=== PATIENT | female | born 1970 | race Caucasian/White ===

== ENCOUNTER → 2016-11-10 | Day surgery (SDC) | payer BC ==
[2016-10-21 09:50] VITALS: Ht 162.6 cm; Wt 90.9 kg
[~2016-11-10] VITALS: Ht 162.6 cm; Wt 90.9 kg
[~2016-11-10] MED LIST: ATROPINE SULFATE 0.1 MG/ML 5ML SYR IV PRN; CALC500C70 PO; CLR10 PO; DEXAMETHASONE SOD INJ 4 MG/ML VIAL ONE; EpHEDrine SULFATE INJ 50 MG/ML AMP IV PRN; FENTANYL CITRATE INJ 50 MCG/1 ML 2 ML VIAL IV PRN; FENTANYL CITRATE INJ 50 MCG/1 ML 2 ML VIAL ONE; FERRIC SUBSULFATE 8 GM VIAL ONE; FLAX1CAP11 PO; FLUMAZENIL 0.1 MG/1 ML 10 ML VIAL IV PRN; GLYCOPYRROLATE INJ 0.2 MG/ML VIAL ONE; IBUPROFEN 600 MG TAB PO PRN; IODINE SOLN STRONG 14 ML ONE; KETOROLAC TROMETHAMINE 30 MG/ML VIAL IV. PRN; LABETALOL HCL IV 5 MG/ML 20ML IV PRN; LACTATED RINGER'S 1000ML 1,000 ML IV SCH; LIDOCAINE HCL 2% 2 ML VIAL (20MG/ML) ONE; LIDOCAINE/EPINEPHRINE 1% INJ 50 ML VIAL ONE; LOSA50TA6 PO; METOCLOPRAMIDE HCL INJ 5 MG/ML 2 ML VIAL IV PRN; MIDAZOLAM HCL 1 MG/ML 2ML VIAL ONE; MULT-506 PO; NALOXONE HCL 0.4 MG/1 ML VIAL/CARP IV PRN; NEOSTIGMINE METHYLSULFATE 5 MG/5 ML SYR ONE; ONDANSETRON INJ 2 MG/ML 2 ML VIAL IV PRN; ONDANSETRON INJ 2 MG/ML 2 ML VIAL ONE; OXYCODONE/ACETAMINOPHEN 5-325 TAB PO PRN; PRLSR20 PO; PROMETHAZINE HCL INJ 12.5 MG in SODIUM CHLORIDE 0.9% 50ML 50 ML IV PRN; PROPOFOL IV EMULSION 10 MG/ML 20 ML VIAL IV ONE; ROCURONIUM BROMIDE 10 MG/ML 5 ML VIAL ONE; SODIUM CHLORIDE 0.9% 1000ML 1,000 ML IV SCH; SUCCINYLCHOLINE 100MG/5ML SYR IV ONE
--- NOTE | 2016-11-10 12:47 | History & Physical Bridge - [place] ---
H&P Re-Evaluation Bridge Note: I have examined the patient, reviewed the History & Physical and in the interval since the performance of the History & Physical I have noted the following changes of clinical significance: No changes noted
--- NOTE | 2016-11-10 12:57 | Discharge Instructions-SurgCtr ---
Discharge Instructions Date of Service Nov 10, 2016. Visit Reason for Visit: Atypical Glandular Cells Undetermined Significance Discharge Discharge Diagnosis / Problem: Atypical glandular cells Discharge Goals Goal(s): Specific goals Activity Recommendations Activity Limitations: per Instructions/Follow-up section Anesthesia . Post Anesthesia Instructions: If you have had General Anesthesia or IV Sedation: * Do not drive today. * Resume driving when surgeon permits. * Do not make important decisions or sign legal documents today. * Call surgeon for: 1. Temperature elevations greater than 101 degrees F. 2. Uncontrollable pain. 3. Excessive bleeding. 4. Persistent nausea and vomiting. 5. Medication intolerance (nausea, vomiting or rash). * For nausea and vomiting use only clear liquids such as: tea, soda, bouillon until nausea subsides, then gradually increase diet as tolerated. * If you have any concerns or questions, call your surgeon's office. If physician is unavailable and it is an emergency, call 911 or go to the nearest emergency room. . Instructions / Follow-Up Instructions / Follow-Up ACTIVITY RECOMMENDATIONS: * Avoid tampons, douching, hot tubs, pools, and intercourse until bleeding has stopped. * May shower as usual. * No strenuous activity for 24-48 hours. After 24-48 hours, you may do anything you feel like doing (driving and sports are okay). SPECIAL CARE INSTRUCTIONS: Special Diet: * Mild nausea may occur in the immediate post-operative period. * Take clear liquids such as tea, cola or bouillon until all nausea has subsided; you may then resume your normal diet. Special Care: * Light bleeding and vaginal spotting can last from a few days to 3-4 weeks. Call your doctor if bleeding becomes heavier than the heaviest part of your period. * Check your temperature twice a day for one week. If it goes above 100.4 degrees Fahrenheit (38.0 Celsius), notify your doctor. * Call your doctor's office for an appointment for 6 weeks after your surgery. FOLLOW-UP VISIT: Call your doctor's office for an appointment for 6 weeks after your surgery. Diet Recommendations Home Diet: resume previous diet Pending Studies Studies pending at discharge: no Medical Emergencies . Who to Call and When: Medical Emergencies: If at any time you feel your situation is an emergency, please call 911 immediately. . Non-Emergent Contact Non-Emergency issues call your: Primary Care Provider . . "Provider Documentation" section prepared by Sheron Mark.
--- NOTE | 2016-11-10 13:53 | [facility] Post Operative Brief Note ---
Immediate Operative Summary Operative Date Nov 10, 2016. Pre-Operative Diagnosis Atypical Glandular Cells Undetermined Significance Post-Operative Diagnosis same Procedure(s) Performed Dilatation And Curettage, Hysteroscopy, Possible Polypectomy, Loop Electrosurgical Excision Procedure Surgeon Dr. Ave aMrk Emulsification Operator Surgeon(s) 0 Estimated Blood Loss 10cc Findings Normal appearing ectocervix, endocervix. LEEP done with broad ectocervical sweep and smaller top-hat. Endometrial cavity with ostia visualized bilaterally and without obvious polyps. Specimens A.Ectocervix B. Top Hat C. Endometrial Curettings Complication(s) None Disposition Recovery Room / PACU
--- NOTE | 2016-11-10 14:25 | OPERATIVE REPORT ---
DATE OF OPERATION: 11/10/2016 PREOPERATIVE DIAGNOSIS: Atypical glandular cells of undetermined significance. POSTOPERATIVE DIAGNOSIS: Same. PROCEDURE: Dilation and curettage with hysteroscopy and loop electrical excision procedure. SURGEON: Dr. Mark. TRANSCRIBER: None. ESTIMATED BLOOD LOSS: 10 mL. FINDINGS: Normal appearing ectocervix and endocervix. LEEP was done with a broad ectocervical sweep and a smaller top hat. Endometrial cavity with ostia visualized bilaterally appeared relatively normal and without obvious polyps. There were some cavity distortions consistent with possible anterior fundal fibroid. SPECIMENS: Ectocervix top hat and endometrial curettings. COMPLICATIONS: None. DISPOSITION: Stable to the recovery room. DESCRIPTION: Ms. Quispe is a 46-year-old female with a Pap smear showing AGCUS. She had been previously cared for by Dr. Husain of the [facility] group, who had done appropriate workup for her including colposcopy, endocervical curettage and endometrial biopsy. All of these were normal, leaving her AGCUS Pap unexplained. The appropriate next step would be a LEEP. Additionally, polypoid tissue was seen on the endometrial biopsy done at [facility], therefore the patient and I had discussed doing a D\T\C in order to retrieve any polyps that may be present in the cavity. The patient was brought for the planned procedures including LEEP and D\T\C hysteroscopy. She was placed on the table in the dorsal lithotomy position, using candy cane stirrups and prepped and draped in the standard sterile fashion and a hard time-out was taken prior to proceeding. The bladder was emptied of urine via straight catheterization. The coated Graves' speculum was introduced to the vagina. The ectocervix with transformation zone was easily visualizable due to the Betadine prep solution. 10 mL of 1% lidocaine with epinephrine were then used to roxie the ectocervix by injecting 2.5 mL in each of 4 quadrants of the ectocervix. Once blanching had been achieved, the loop was used to excise a shallow, but wide ectocervical specimen, which was sent in 1 container. A smaller loop was then used to excise a top hat specimen, which was sent in a smaller container. The cervix was then dilated to allow passage of the hysteroscope, which was introduced to the fundus, where a normal cavity was seen with ostia visuable bilaterally. There were no obvious polyps. There were some possible fibroid seen in the anterior fundal region, visible as mild mounding or bumps inwards in the endometrial lining. These were subtle and I suspect that these, if they represent fibroids, would be intramural and not directly submucosal. The scope was then withdrawn and a brief sharp curettage was carried out on all traylor. The endometrial curettings were sent for pathology and the scope was then gently reintroduced to the fundus where the cavity was seen to be well curette on all traylor. After the scope was withdrawn, ball electrocautery was used to achieve complete hemostasis in the prior LEEP bed. Once hemostasis was achieved, all instruments were removed and the patient was transferred to the recovery room. I attest to the content of the Intraoperative Record and any orders documented therein. Any exceptio ns are noted below.
[2016-11-10 14:44] VITALS: TEMP 36.4
--- NOTE | 2016-11-10 14:50 | Anesthesia Progress Nt - [facility] ---
Anesthesia Post Op Note Date & Time Nov 10, 2016 at 14:49 Vital Signs Pain Intensity: 0 Vital Signs Past 12 Hours Date Time Temp Pulse Resp B/P Pulse Ox O2 Delivery O2 Flow Rate FiO2 11/10/16 14:44 36.4 65 18 129/84 97 Room Air 11/10/16 14:26 36.4 95 Room Air 11/10/16 14:20 61 13 133/88 100 11/10/16 14:15 61 6 133/76 100 11/10/16 14:10 67 12 131/86 100 11/10/16 14:05 69 19 140/83 100 11/10/16 14:00 81 19 139/88 100 11/10/16 13:57 36.7 98 152/85 100 11/10/16 13:57 36.7 86 20 152/85 100 Mask 8 11/10/16 10:56 36.9 100 16 146/87 97 Room Air Notes Mental Status: alert / awake / arousable, participated in evaluation Pt Amnestic to Procedure: Yes Nausea / Vomiting: adequately controlled Pain: adequately controlled Airway Patency, RR, SpO2: stable & adequate BP & HR: stable & adequate Hydration State: stable & adequate Anesthetic Complications: no major complications apparent
[2016-11-10 15:20] VITALS: BP 139/87; PULSE 68; O2SAT 98
== END | disposition home or self-care (01) ==
LOC: X.SURG 10:41
PROVIDERS: ATTEND Obstetrics & Gynecology
DX: N72 Inflammatory disease of cervix uteri (principal); K21.9 Gastro-esophageal reflux disease without esophagitis; I10 Essential (primary) hypertension; J30.2 Other seasonal allergic rhinitis; Z98.890 Other specified postprocedural states; Z88.8 Allergy status to other drugs, medicaments and biological substances

== ENCOUNTER → 2017-11-27 | Outpatient (CLI) | payer OTHER ==
[~2017-11-27] MED LIST changes: -ATROPINE SULFATE 0.1 MG/ML 5ML SYR IV PRN; -DEXAMETHASONE SOD INJ 4 MG/ML VIAL ONE; -EpHEDrine SULFATE INJ 50 MG/ML AMP IV PRN; -FENTANYL CITRATE INJ 50 MCG/1 ML 2 ML VIAL IV PRN; -FENTANYL CITRATE INJ 50 MCG/1 ML 2 ML VIAL ONE; -FERRIC SUBSULFATE 8 GM VIAL ONE; -FLUMAZENIL 0.1 MG/1 ML 10 ML VIAL IV PRN; -GLYCOPYRROLATE INJ 0.2 MG/ML VIAL ONE; -IBUPROFEN 600 MG TAB PO PRN; -IODINE SOLN STRONG 14 ML ONE; -KETOROLAC TROMETHAMINE 30 MG/ML VIAL IV. PRN; -LABETALOL HCL IV 5 MG/ML 20ML IV PRN; -LACTATED RINGER'S 1000ML 1,000 ML IV SCH; -LIDOCAINE HCL 2% 2 ML VIAL (20MG/ML) ONE; -LIDOCAINE/EPINEPHRINE 1% INJ 50 ML VIAL ONE; -METOCLOPRAMIDE HCL INJ 5 MG/ML 2 ML VIAL IV PRN; -MIDAZOLAM HCL 1 MG/ML 2ML VIAL ONE; -NALOXONE HCL 0.4 MG/1 ML VIAL/CARP IV PRN; -NEOSTIGMINE METHYLSULFATE 5 MG/5 ML SYR ONE; -ONDANSETRON INJ 2 MG/ML 2 ML VIAL IV PRN; -ONDANSETRON INJ 2 MG/ML 2 ML VIAL ONE; -OXYCODONE/ACETAMINOPHEN 5-325 TAB PO PRN; -PROMETHAZINE HCL INJ 12.5 MG in SODIUM CHLORIDE 0.9% 50ML 50 ML IV PRN; -PROPOFOL IV EMULSION 10 MG/ML 20 ML VIAL IV ONE; -ROCURONIUM BROMIDE 10 MG/ML 5 ML VIAL ONE; -SODIUM CHLORIDE 0.9% 1000ML 1,000 ML IV SCH; -SUCCINYLCHOLINE 100MG/5ML SYR IV ONE
== END | disposition home or self-care (01) ==
LOC: C.PAPS 13:55
PROVIDERS: ATTEND Obstetrics & Gynecology
DX: Z12.4 Encounter for screening for malignant neoplasm of cervix (principal)